=== PATIENT | female | born 1950 | race Hispanic/Latino ===

== ENCOUNTER 2020-11-27 13:00 | Outpatient (RCR) | payer MEDICARE | END 2020-11-28 | LOC: PT 13:00 | PROVIDERS: ATTEND Specialist | DX: M17.11 Unilateral primary osteoarthritis, right knee (principal) ==

== ENCOUNTER 2020-12-27 14:49 | Outpatient (RCR) | payer MEDICARE | END 2020-12-29 | LOC: PT 14:49 | PROVIDERS: ATTEND Specialist | DX: M17.11 Unilateral primary osteoarthritis, right knee (principal) | CPT/HCPCS: 97139 ==

== ENCOUNTER 2021-01-22 12:58 | Outpatient (RCR) | payer MEDICARE | END 2021-01-28 | LOC: PT 12:58 | PROVIDERS: ATTEND Specialist | DX: M17.11 Unilateral primary osteoarthritis, right knee (principal) | CPT/HCPCS: 97139 ==

== ENCOUNTER → 2021-10-10 | Outpatient (CLI) | payer MEDICARE | LOC: MRI 15:03 | PROVIDERS: ATTEND Specialist | DX: M75.122 Complete rotator cuff tear or rupture of left shoulder, not specified as traumatic (principal); M19.012 Primary osteoarthritis, left shoulder ==

== ENCOUNTER 2021-10-27 15:10 | Outpatient (RCR) | payer MEDICARE | END 2021-10-29 | LOC: OT 15:10 | PROVIDERS: ATTEND Specialist | DX: M17.11 Unilateral primary osteoarthritis, right knee (principal); S83.221D Peripheral tear of medial meniscus, current injury, right knee, subsequent encounter; M25.561 Pain in right knee; M62.81 Muscle weakness (generalized) ==

== ENCOUNTER 2021-11-25 15:19 | Outpatient (RCR) | payer MEDICARE | END 2021-11-28 | LOC: OT 15:19 | PROVIDERS: ATTEND Specialist | DX: S46.002A Unspecified injury of muscle(s) and tendon(s) of the rotator cuff of left shoulder, initial encounter (principal) ==